=== PATIENT | female | born 1970 | race Caucasian/White ===

== ENCOUNTER 2021-02-20 00:04 | Emergency (ER) | payer MEDICAID ==
[~2021-02-20] VITALS: Ht 157.5 cm; Wt 82.6 kg
[2021-02-20 00:12] VITALS: BP_SYST 139
[2021-02-20 01:58] LABS: BILIRUBIN,URINE NEGATIVE (NEGATIVE); BLOOD, URINE 3+ (NEGATIVE); CLARITY/URINE CLOUDY (CLEAR); COLOR,URINE YELLOW (YELLOW); GLUCOSE,URINE NEGATIVE (NEGATIVE); KETONES,URINE NEGATIVE (NEGATIVE); LEUKOCYTE ESTERASE ,URINE 1+ (NEGATIVE); NITRITE, URINE NEGATIVE (NEGATIVE); PROTEIN URINE NEGATIVE (NEGATIVE); UROBILINOGEN,URINE 0.2 (0.2-1.0)
[2021-02-20 02:17] LABS: BACTERIA,URINE MODERATE /HPF (None Seen); RBC,URINE 20-50 /HPF (0-3); WBC,URINE 20-50 /HPF (0-3)
[2021-02-20] MEDS ORDERED: NITR-85 PO (02:33)
[2021-02-20] MEDS ORDERED: PHEN-726 PO (02:33)
[2021-02-20 02:35] VITALS: BP_SYST 139
== END 2021-02-20 02:35 | disposition home or self-care (01) ==
LOC: SED 00:04
DX: N39.0 Urinary tract infection, site not specified (principal); Z79.899 Other long term (current) drug therapy
CPT/HCPCS: 81000; 81025; 87086; 99283